=== PATIENT | male | born 2000 | race Caucasian/White ===

== ENCOUNTER 2024-04-03 13:00 | Outpatient (RCR) | payer BC, SELFPAY | END 2024-07-29 16:28 | disposition home or self-care (01) | PROVIDERS: Visit Provider Podiatrist | DX: M77.41 Metatarsalgia, right foot (principal); M77.42 Metatarsalgia, left foot; M79.671 Pain in right foot; M79.672 Pain in left foot; M62.461 Contracture of muscle, right lower leg; M62.462 Contracture of muscle, left lower leg; M72.2 Plantar fascial fibromatosis; Z74.09 Other reduced mobility; R26.9 Unspecified abnormalities of gait and mobility; Z51.89 Encounter for other specified aftercare | CPT/HCPCS: 97035; 97110; 97140; 97161; 97535 ==